=== PATIENT | female | born 1985 | race Caucasian/White ===

== ENCOUNTER 2016-06-14 09:48 | Emergency (ER) | payer MEDICAID ==
[2016-06-14] MEDS ORDERED: SILVER NITRATE SWABS TOPICAL ONE (10:10)
[2016-06-14] MEDS ORDERED: SODIUM CHLORIDE 0.9% 1,000 ML ONE (10:12)
[2016-06-14] MEDS ORDERED: ONDANSETRON 4 MG VIAL ONE (10:39)
[2016-06-14] MEDS ORDERED: MORPHINE 4 MG/ML SYR ONE (10:39)
[2016-06-14] MEDS ORDERED: ESTROGEN VAG CR 30 GM VAG ONE (11:40)
== END 2016-06-14 12:05 | disposition home or self-care (01) ==
LOC: ER 09:48
DX: N99.821 Postprocedural hemorrhage of a genitourinary system organ or structure following other procedure (principal); Z90.710 Acquired absence of both cervix and uterus
CPT/HCPCS: 36415; 80053; 85025; 85610; 85730; 96361; 96374; 96375

== ENCOUNTER 2016-06-15 14:54 | Observation (INO) | payer MEDICAID ==
[2016-06-15] VITALS (16 sets, daily range): BP systolic 100–138; RESP 11–20; TEMP 97.4–98.1; Ht 154.9 cm; Wt 72.6 kg
[~2016-06-15] VITALS: Ht 154.9 cm; Wt 72.6 kg
[~2016-06-15 14:54] MED LIST: ACETAMINOPHEN 1,000 MG/100 ML IV ONE; ESTROGEN VAG CR 30 GM VAG ONE; FENTANYL 100 MCG/2 ML AMP ONE; GLYCOPYRROLATE 0.2 MG/ML VIAL ONE; LIDOCAINE 2% SYR 5 ML IV ONE; METOCLOPRAMIDE 10 MG/2 ML VIAL ONE; NEOSTIGMINE 10 MG/10 ML VIAL ONE; ONDANSETRON 4 MG VIAL ONE; PROPOFOL 20 ML PER ML IV ONE; ROCURONIUM 50 MG VIAL IV ONE; SUCCINYLCHOLINE 20 MG/ML VL IV ONE
[2016-06-15] MEDS ORDERED: GLUCAGON 1 MG VIAL IM PRN ×2 (15:20→17:00)
[2016-06-15] MEDS ORDERED: LACT RINGERS 1,000 ML IV SCH ×3 (15:20→16:45)
[2016-06-15] MEDS ORDERED: NICOTINE 14 MG/24 HR TDSY TRANSDERM PRN (15:20)
[2016-06-15] MEDS ORDERED: DEXTROSE 50% SYRINGE 50 ML IV PRN ×2 (15:20→17:00)
[2016-06-15] MEDS ORDERED: METRONIDAZOLE 500MG/100ML 100 ML IV ONE (15:20)
[2016-06-15] MEDS ORDERED: LIDOCAINE 1% BUFFERED 1 ML SYR INTRADERM PRN (15:25)
[2016-06-15] MEDS ORDERED: MIDAZOLAM 2 MG/2 ML INJ IV ONE (15:25)
[2016-06-15] MEDS ORDERED: CEFOTETAN IV ONE (15:45)
[2016-06-15] MEDS ORDERED: SODIUM CHLORIDE 0.9% IV ONE (15:45)
[2016-06-15] MEDS ORDERED: ONDANSETRON 4 MG VIAL IV PRN (16:15)
[2016-06-15] MEDS ORDERED: MORPHINE 4 MG/ML SYR IV PRN (16:15)
[2016-06-15] MEDS ORDERED: OXYCODONE 5 MG TAB PO PRN (16:15)
[2016-06-15] MEDS ORDERED: MORPHINE 2 MG/ML SYR IV PRN (16:15)
[2016-06-15] MEDS ORDERED: MEPERIDINE 25 MG/ML IV PRN (16:15)
[2016-06-15] MEDS ORDERED: ACETAMINOPHEN 325 MG TAB PO PRN (16:45)
[2016-06-15] MEDS ORDERED: SALINE FLUSH 10 ML FLUSH PRN (16:45)
[2016-06-15] MEDS ORDERED: ONDANSETRON 4 MG VIAL IV PUSH PRN (16:45)
[2016-06-15] MEDS ORDERED: NICOTINE 21 MG/24 HR TRANSDERM PRN (16:45)
[2016-06-15] MEDS: DILAUDID 1 MG/ML AMP IV PRN ×2 (17:05→17:18)
[2016-06-15] MEDS: LEVOFLOXACIN 500 MG TAB PO SCH (17:45)
[2016-06-15] MEDS ORDERED: Flu Vaccine Quadrivalent 60 MCG/0.5 ML IM.VACC ONE (18:30)
[2016-06-15] MEDS: FAMOTIDINE 20 MG TAB PO SCH (20:20)
[2016-06-15] MEDS: METRONIDAZOLE 500 MG TAB PO SCH (20:20)
[2016-06-15] MEDS ORDERED: QUEtiapine 25 MG TAB PO SCH (21:00)
[2016-06-15] MEDS: OXYCODONE 5 MG TAB PO PRN (21:24)
[2016-06-16 03:09] VITALS: BP_SYST 110; RESP 16; TEMP 97.7
[2016-06-16 07:40] VITALS: BP_SYST 120; RESP 16; TEMP 98.2
[2016-06-16] MEDS: FAMOTIDINE 20 MG TAB PO SCH (07:47)
[2016-06-16] MEDS: METRONIDAZOLE 500 MG TAB PO SCH (07:47)
[2016-06-16] MEDS: LEVOFLOXACIN 500 MG TAB PO SCH (07:48)
[2016-06-16 08:21] VITALS: BP_SYST 120; RESP 16; TEMP 98.2
[2016-06-16] MEDS: OXYCODONE 5 MG TAB PO PRN (08:52)
[2016-06-16] MEDS ORDERED: NICOTINE 21 MG/24 HR TRANSDERM PRN (09:00)
[2016-06-16] MEDS ORDERED: METRONIDAZOLE 500 MG TAB PO SCH ×2 (09:00)
[2016-06-16] MEDS ORDERED: DOCUSATE SOD 100 MG CAP PO ONE (21:00)
== END 2016-06-16 08:33 | disposition home or self-care (01) ==
LOC: ENRESERVTM → ENRESERVDT → SURG 14:54 → ENPENDDIS 16:45 → SDS 16:45 → 5THE 17:35 → MC2 18:49 → 5THE 18:52
PROVIDERS: ADMIT Obstetrics & Gynecology; ATTEND Obstetrics & Gynecology
DX: T81.32XA Disruption of internal operation (surgical) wound, not elsewhere classified, initial encounter (principal); D62 Acute posthemorrhagic anemia; I10 Essential (primary) hypertension; E11.9 Type 2 diabetes mellitus without complications; Z79.4 Long term (current) use of insulin; F17.210 Nicotine dependence, cigarettes, uncomplicated
CPT/HCPCS: 80048; 82947; 85014; 85018; 85025; 86850; 86900; 86901; 94799